=== PATIENT | male | born 1990 | race Native Hawaiian/Other Pacific Islander ===

== ENCOUNTER 2016-08-09 13:03 | Outpatient (CLI) | payer MEDICAID | END 2016-08-09 13:04 | disposition home or self-care (01) | DX: G47.30 Sleep apnea, unspecified (principal); R06.83 Snoring; G47.8 Other sleep disorders ==

== ENCOUNTER 2016-11-09 13:13 | Outpatient (CLI) | payer MEDICAID | END 2016-11-09 13:14 | disposition home or self-care (01) | DX: G47.33 Obstructive sleep apnea (adult) (pediatric) (principal) ==

== ENCOUNTER 2016-12-17 12:52 | Outpatient (CLI) | payer MEDICAID ==
[2016-12-17 13:21] LABS: ALBUMIN/GLOBULIN RATIO 1.1 (1.0-2.2); BILIRUBIN,TOTAL 0.7 mg/dL (0.2-1.0); CALCIUM 9.5 mg/dL (8.5-10.3); CREATININE 0.8 mg/dL (0.6-1.2); POTASSIUM 4.3 mmol/L (3.5-5.0); TOTAL PROTEIN 7.8 g/dL (6.7-8.2)
== END 2016-12-17 12:53 | disposition home or self-care (01) ==
LOC: LAB 12:52
PROVIDERS: ATTEND Physician Assistant
DX: C71.9 Malignant neoplasm of brain, unspecified (principal)
CPT/HCPCS: 36415; 80053

== ENCOUNTER 2016-12-20 14:25 | Outpatient (CLI) | payer MEDICAID ==
[2016-12-20 19:22] LABS: BASOPHILS % (AUTO) 0.4 %; EOSINOPHILS # (AUTO) 0.2 10^3/uL (0.0-0.7); EOSINOPHILS % (AUTO) 2.6 %; HCT - HEMATOCRIT 39.9 % (42.0-52.0); HGB - HEMOGLOBIN 13.7 g/dL (14.0-18.0); LYMPHOCYTES # (AUTO) 2.1 10^3/uL (1.5-3.5); LYMPHOCYTES % (AUTO) 30.8 %; MEAN CORPUSCULAR HEMOGLOBIN 29.2 pg (27.0-31.0); MEAN CORPUSCULAR HGB CONC 34.4 g/dL (32.0-36.0); MEAN CORPUSCULAR VOLUME 85.1 fL (80.0-94.0); MEAN PLATELET VOLUME 10.4 fL (7.4-11.4); MONOCYTES # (AUTO) 0.4 10^3/uL (0.0-1.0); MONOCYTES % (AUTO) 5.9 %; NEUTROPHILS # (AUTO) 4.2 10^3/uL (1.5-6.6); NEUTROPHILS % (AUTO) 60.3 %; RED BLOOD COUNT 4.69 10^6/uL (4.70-6.10); RED CELL DISTRIBUTION WIDTH 13.5 % (12.0-15.0); UNCORRECTED WHITE BLOOD COUNT 6.9 x10^3/uL; WHITE BLOOD COUNT 6.9 x10^3/uL (4.8-10.8)
== END 2016-12-20 14:26 | disposition home or self-care (01) ==
LOC: LAB.N 14:25
PROVIDERS: ATTEND Physician Assistant
DX: C71.9 Malignant neoplasm of brain, unspecified (principal)
CPT/HCPCS: 36415; 85025

== ENCOUNTER 2017-01-17 11:15 | Outpatient (CLI) | payer MEDICAID ==
[2017-01-17 12:04] LABS: CALCIUM 8.9 mg/dL (8.5-10.3); CREATININE 0.8 mg/dL (0.6-1.2); POTASSIUM 3.6 mmol/L (3.5-5.0)
== END 2017-01-17 11:16 | disposition home or self-care (01) ==
LOC: LAB 11:15
PROVIDERS: ATTEND Internal Medicine Endocrinology, Diabetes & Metabolism
DX: E23.2 Diabetes insipidus (principal)
CPT/HCPCS: 36415; 80048

== ENCOUNTER 2017-02-07 10:26 | Outpatient (CLI) | payer MEDICAID ==
[2017-02-07 13:00] LABS: BILIRUBIN,TOTAL 0.9 mg/dL (0.2-1.0); CALCIUM 9.1 mg/dL (8.5-10.3); CREATININE 0.9 mg/dL (0.6-1.2); POTASSIUM 3.8 mmol/L (3.5-5.0); TOTAL PROTEIN 7.9 g/dL (6.7-8.2)
== END 2017-02-07 10:27 | disposition home or self-care (01) ==
LOC: LAB.N 10:26
PROVIDERS: ATTEND Internal Medicine Endocrinology, Diabetes & Metabolism
DX: E23.2 Diabetes insipidus (principal); E29.1 Testicular hypofunction
CPT/HCPCS: 36415; 80053; 84403

== ENCOUNTER 2017-04-12 09:00 | Outpatient (CLI) | payer MEDICAID ==
[2017-04-12 19:39] LABS: ALBUMIN/GLOBULIN RATIO 0.9 (1.0-2.2); BILIRUBIN,DIRECT 0.1 mg/dL (0.1-0.5); BILIRUBIN,TOTAL 0.7 mg/dL (0.2-1.0); CALCIUM 9.4 mg/dL (8.5-10.3); CREATININE 0.9 mg/dL (0.6-1.2); TOTAL PROTEIN 7.7 g/dL (6.7-8.2)
== END 2017-04-12 09:01 | disposition home or self-care (01) ==
LOC: LAB.N 09:00
PROVIDERS: ATTEND Physician Assistant
DX: C71.9 Malignant neoplasm of brain, unspecified (principal)
CPT/HCPCS: 36415; 80053; 80076; 82248

== ENCOUNTER 2017-06-29 09:34 | Outpatient (CLI) | payer MEDICAID | END 2017-06-29 09:35 | disposition home or self-care (01) | LOC: NS 09:34 | PROVIDERS: ATTEND Internal Medicine | DX: Z71.3 Dietary counseling and surveillance (principal); E66.01 Morbid (severe) obesity due to excess calories; Z68.44 Body mass index [BMI] 60.0-69.9, adult | CPT/HCPCS: 97802 ==

== ENCOUNTER 2017-07-04 16:14 | Outpatient (CLI) | payer MEDICAID ==
[2017-07-04 16:48] LABS: ALBUMIN/GLOBULIN RATIO 0.8 (1.0-2.2); BILIRUBIN,DIRECT 0.1 mg/dL (0.1-0.5); BILIRUBIN,TOTAL 0.6 mg/dL (0.2-1.0); CALCIUM 9.1 mg/dL (8.5-10.3); CREATININE 0.9 mg/dL (0.6-1.2); POTASSIUM 3.8 mmol/L (3.5-5.0); TOTAL PROTEIN 8.1 g/dL (6.7-8.2)
[2017-07-04 16:49] LABS: BASOPHILS % (AUTO) 0.3 %; EOSINOPHILS # (AUTO) 0.2 10^3/uL (0.0-0.7); EOSINOPHILS % (AUTO) 2.1 %; HCT - HEMATOCRIT 43.6 % (42.0-52.0); HGB - HEMOGLOBIN 14.6 g/dL (14.0-18.0); LYMPHOCYTES # (AUTO) 1.2 10^3/uL (1.5-3.5); LYMPHOCYTES % (AUTO) 14.1 %; MEAN CORPUSCULAR HEMOGLOBIN 28.9 pg (27.0-31.0); MEAN CORPUSCULAR HGB CONC 33.5 g/dL (32.0-36.0); MEAN CORPUSCULAR VOLUME 86.1 fL (80.0-94.0); MEAN PLATELET VOLUME 9.1 fL (7.4-11.4); MONOCYTES # (AUTO) 0.6 10^3/uL (0.0-1.0); MONOCYTES % (AUTO) 7.1 %; NEUTROPHILS # (AUTO) 6.6 10^3/uL (1.5-6.6); NEUTROPHILS % (AUTO) 76.4 %; RED BLOOD COUNT 5.06 10^6/uL (4.70-6.10); RED CELL DISTRIBUTION WIDTH 14.6 % (12.0-15.0); UNCORRECTED WHITE BLOOD COUNT 8.7 x10^3/uL; WHITE BLOOD COUNT 8.7 x10^3/uL (4.8-10.8)
== END 2017-07-04 16:15 | disposition home or self-care (01) ==
LOC: LAB 16:14
PROVIDERS: ATTEND Physician Assistant
DX: Z51.11 Encounter for antineoplastic chemotherapy (principal); C71.9 Malignant neoplasm of brain, unspecified
CPT/HCPCS: 36415; 80053; 82248; 85025

== ENCOUNTER 2017-07-27 12:48 | Outpatient (CLI) | payer MEDICAID | END 2017-07-27 12:49 | disposition home or self-care (01) | LOC: NS 12:48 | PROVIDERS: ATTEND Internal Medicine | DX: Z71.3 Dietary counseling and surveillance (principal); E66.01 Morbid (severe) obesity due to excess calories; Z68.44 Body mass index [BMI] 60.0-69.9, adult | CPT/HCPCS: 97803 ==

== ENCOUNTER 2018-02-20 11:09 | Outpatient (CLI) | payer MEDICAID ==
[2018-02-20 19:11] LABS: CALCIUM 8.8 mg/dL (8.5-10.3)
[2018-02-20 19:26] LABS: THYROID STIMULATING HORMONE < 0.08 uIU/mL (0.34-5.60)
[2018-02-20 19:28] LABS: FREE T4 (FREE THYROXINE) 1.09 ng/dL (0.58-1.64)
== END 2018-02-20 11:10 | disposition home or self-care (01) ==
LOC: LAB.N 11:09
PROVIDERS: ATTEND Internal Medicine
DX: E23.0 Hypopituitarism (principal); E23.2 Diabetes insipidus; E29.1 Testicular hypofunction; E27.40 Unspecified adrenocortical insufficiency; E03.9 Hypothyroidism, unspecified; E55.9 Vitamin D deficiency, unspecified
CPT/HCPCS: 36415; 80048; 81599; 82306; 83930; 83935; 84146; 84439; 84443

== ENCOUNTER 2018-02-24 14:36 | Outpatient (CLI) | payer MEDICAID | END 2018-02-24 14:37 | disposition home or self-care (01) | LOC: LAB.R 14:36 | PROVIDERS: ATTEND Internal Medicine | DX: E23.0 Hypopituitarism (principal); E23.2 Diabetes insipidus; E29.1 Testicular hypofunction; E27.40 Unspecified adrenocortical insufficiency; E03.9 Hypothyroidism, unspecified; E55.9 Vitamin D deficiency, unspecified | CPT/HCPCS: 81003 ==

== ENCOUNTER 2018-08-16 08:00 | Outpatient (CLI) | payer MEDICAID | END 2018-08-16 23:59 | disposition home or self-care (01) | LOC: LAB.N 08:00 | PROVIDERS: ATTEND Internal Medicine | DX: E29.1 Testicular hypofunction (principal) | CPT/HCPCS: 36415; 81599; 84402; 84403 ==

== ENCOUNTER 2018-08-31 08:00 | Outpatient (CLI) | payer MEDICAID | END 2018-08-31 23:59 | disposition home or self-care (01) | LOC: LAB.N 08:00 | PROVIDERS: ATTEND Internal Medicine | DX: E29.1 Testicular hypofunction (principal) | CPT/HCPCS: 81599; 84270; 84402; 84403 ==

== ENCOUNTER 2018-10-29 15:48 | Outpatient (CLI) | payer MEDICAID | END 2018-10-29 15:49 | disposition home or self-care (01) | LOC: SC 15:48 | PROVIDERS: ATTEND Nurse Practitioner Family | DX: G47.33 Obstructive sleep apnea (adult) (pediatric) (principal) | CPT/HCPCS: 99212; 99214 ==

== ENCOUNTER 2019-01-29 10:00 | Outpatient (CLI) | payer MEDICAID | END 2019-01-29 23:59 | disposition home or self-care (01) | LOC: LAB.R 10:00 | PROVIDERS: ATTEND Family Medicine | DX: R39.9 Unspecified symptoms and signs involving the genitourinary system (principal) | CPT/HCPCS: 87086 ==

== ENCOUNTER 2019-02-21 14:55 | Outpatient (CLI) | payer MEDICAID ==
--- NOTE | 2019-02-22 10:58 | XRAY Report ---
Reason: FOOT PAIN, RIGHT Procedure Date: 02/21/2019 Accession Number: [id number] / [id number] Procedure: XR - Foot 2 View RT CPT Code: FULL RESULT: EXAM: RIGHT FOOT RADIOGRAPHY EXAM DATE: 02/21/2019 03:08 PM. CLINICAL HISTORY: Right foot pain and swelling for 2 weeks. COMPARISON: None. TECHNIQUE: 2 views. FINDINGS: Bones: No acute fracture or bony lesion. No bony erosions. Small posterior and plantar calcaneal spurs. Joints: Mild degenerative changes of the right first MTP joint. No dislocation. Soft Tissues: Soft tissue edema. No radiopaque foreign bodies. IMPRESSION: 1. No osseous abnormalities. RADIA
== END 2019-02-21 14:56 | disposition home or self-care (01) ==
LOC: DI 14:55
PROVIDERS: ATTEND Family Medicine
DX: M79.671 Pain in right foot (principal)

== ENCOUNTER 2019-02-22 23:20 | Emergency (ER) | payer MEDICAID ==
--- NOTE | 2019-02-23 00:51 | ED Physician Documentation ---
History of Present Illness - Stated complaint Stated Complaint: RT FOOT SWELL/PX - Chief complaint Chief Complaint: Ext Problem - History obtained from History obtained from: Patient - History of Present Illness Timing: How many days ago (2) Pain level now: 6 Improved by: rest Worsened by: palpation, movement, weight-bearing - Additonal information Additional information: c/o 1-2 days right foot pain and swelling. denies injury Review of Systems Constitutional: reports: Reviewed and negative Skin: reports: Reviewed and negative Musculoskeletal: reports: Extremity pain, Extremity swelling, Pain with weight bearing PD PAST MEDICAL HISTORY - Past Medical History Past Medical History: Yes Endocrine/Autoimmune: HyPOthyroidism - Past Surgical History Past Surgical History: Yes Neuro: Other - Present Medications Home Medications: Ambulatory Orders Medication Instructions Recorded Confirmed Indomethacin 25 mg PO TID PRN #20 capsule 02/23/19 oxyCODONE [Roxicodone] 5 - 10 mg PO Q6H PRN #20 tablet 02/23/19 - Allergies Allergies/Adverse Reactions: Allergies Allergy/AdvReac Type Severity Reaction Status Date / Time No Known Drug Allergies Allergy Verified 02/22/19 23:47 - Social History Does the pt smoke?: No Smoking Status: Never smoker Does the pt drink ETOH?: Yes Does the pt have substance abuse?: No - Immunizations Immunizations are current?: Yes - POLST Patient has POLST: No PD ED PE NORMAL - Vitals Vital signs reviewed: Yes - General General: Alert and oriented X 3, No acute distress, Well developed/nourished - Derm Derm: Normal color, Warm and dry, No rash - Neuro Neuro: No motor deficit, No sensory deficit PD ED PE EXPANDED - Extremities Extremities: Tenderness (right foot, worst at first MCP joint), Pedal edema R Results - Vitals Vitals: Oxygen O2 Source Room air - Rads (name of study) venous doppler right LE Radiology: Prelim report reviewed, See rad report PD MEDICAL DECISION MAKING - ED course Complexity details: reviewed results, re-evaluated patient, considered differential, d/w patient Departure - Departure Disposition: 01 Home, Self Care Clinical Impression: Pain of lower extremity Condition: Good Instructions: ED Arthritis Gout, ED Leg Swelling Unilateral Follow-Up: APRIL BERMAN MD [Primary Care Provider] - Within 3 Days Prescriptions: Indomethacin 25 mg PO TID PRN #20 capsule PRN Reason: Pain oxyCODONE [Roxicodone] 5 - 10 mg PO Q6H PRN #20 tablet PRN Reason: Pain Discharge Date/Time: 02/23/19 04:25
[2019-02-23] MEDS ORDERED: oxyCODONE 5 MG TABLET PO STA (01:25)
--- NOTE | 2019-02-23 02:10 | Ultrasound Report ---
Reason: swelling, pain, no injury Procedure Date: 02/23/2019 Accession Number: [id number] / [id number] Procedure: US - Duplex Ext Veins Right CPT Code: FULL RESULT: EXAM: RIGHT LOWER EXTREMITY VENOUS ULTRASOUND EXAM DATE: 02/23/2019 01:34 AM. CLINICAL HISTORY: Swelling, pain, no injury. COMPARISON: None. TECHNIQUE: Real-time sonographic vascular imaging was performed by the roll hand through the right lower extremity utilizing both color-flow and Doppler spectral analysis. Multiple customer account representative static images were saved for review. FINDINGS: Limitations: Suboptimal visualization of distal femoral vein and calf veins due to body habitus. Common Femoral Vein (CFV): Normal. CFV-GSV Junction: Normal. Profunda Femoral Vein (PFV): Normal. Femoral Vein (FV) Prox: Normal. Femoral Vein (FV) Mid: Normal. Femoral Vein (FV) Dist: Not well seen although normal as visualized. Popliteal Vein: Not well seen although normal as visualized. Posterior Tibial Veins: Not well seen. Peroneal Veins: Not well seen. IMPRESSION: 1. Somewhat limited examination due to body habitus. 2. No evidence of DVT in the right lower extremity allowing for limitations of exam. RADIA
[2019-02-23] MEDS ORDERED: HYDROmorphone 1 MG/ML CARPUJECT IM STA (02:48)
[2019-02-23] MEDS ORDERED: COLCHICINE 0.6 MG TABLET PO STA ×2 (02:49→02:50)
[2019-02-23] MEDS ORDERED: INDOMETHACIN 25 MG CAPSULE PO STA (02:50)
[2019-02-23] MEDS ORDERED: ONDANSETRON ODT 4 MG TABLET TL STA (03:42)
[2019-02-23 04:49] VITALS: BP 139/74
== END 2019-02-23 04:25 | disposition home or self-care (01) ==
LOC: ED 23:20
DX: M79.671 Pain in right foot (principal); R60.0 Localized edema
CPT/HCPCS: 93971; 96372; 99283; 99284; A9270; J1170; Q0162

== ENCOUNTER 2019-12-05 15:02 | Outpatient (CLI) | payer MEDICAID ==
--- NOTE | 2019-12-05 11:31 | SLEEP CARE CONSULTATION ---
Information from patient questionnaire entered by Miriam Deluca. I have reviewed and concur with the information entered by Miriam Deluca. This document represents the service I personally performed and the decisions made by me, Farhana Dowd, RN, MSN, APPLIANCE SERVICER. History of Present Illness Service Date and Time: 12/05/2019 1502 Previous diagnosis: Extremely Severe, Obstructive Sleep Apnea-Hypopnea Syndrome AHI: 129.9 (in 2009) Reason for follow up: annual (last seen 2018) Equipment type: CPAP Equipment obtained from: [employer] (getting supplies as needed) Mask style: Full face Backup mask available: No (keep current mask as spare when replaced) Last cushion change: with last mask in July CPAP Compliance Data - Data Reviewed with Patient Average duration of nightly device use: 6.55 Compliance rate %: 100 (180 days) Current pressure setting (cmH2O): 16 Humidity settin Heated hose settin Average residual AHI: 1.0 Average large leak: 31 min Subjective Patient concerns: reports: mask leak noise (notices when awakens but does not disrupt sleep), dry mouth, nose, throat (dry mouth - mild - most days). denies: aerophagia, mask discomfort, air blowing in eyes, condensation in mask/hose, nasal congestion, epistaxis, other Observed to snore while using device: No Current pressure setting perceived as: comfortable On therapy, patient: reports: sleeping better, awakening more refreshed, being more awake and alert during the day, more rested overall. denies: drowsiness while driving (intermittent restfulness that he relates to his thyroid and testosterone conditions managed by PCP) Initial [place] Sleepiness Scale score: 9 (in 2010) Allergies and Home Medications Home medication list reviewed: No ( diet medication added) Physical Exam Height: 6 ft 1 in Weight: 520 lb (home weight) Body Mass Index: 68.5 BMI Classification: Morbidly Obese Impression and Plan 1. Obstructive Sleep Apnea-Hypopnea Syndrome, extremely severe, with excellent treatment compliance and excellent apnea control. On CPAP therapy, the patient has better sleep quality and is more rested overall with intermittent fatigue related to other medical conditions. He is encouraged to change mask cushion more often for better mask seal as discussed. Review of supply replacements and can get a list from [employer]. Oral dryness can be reduced by adjusting humidity setting higher or heated hose lower or by adjusting both settings. with rationale explaining why to change. He will start process by lowering the heated hose. Oral dryness can also be reduced by reducing mask leaks. Patient advised that chronic oral dryness can affect dental health and advised to follow up with dentist. In addition, there are oral dryness products that can be used to reduce dryness such as Biotene products, Dry mouth rinse and Xylomelts. Patient to discuss best option with dentist. Patient has lost and gained weight. Currently patients BMI is 68.6 morbid obesity class . He is working with his PCP on weight loss with medication and diet plan with a crm consultant. I reviewed how obesity increases the risk of apnea, CPAP pressure requirements and overall health risks especially cardiovascular and diabetes. Thus patient is advised to continue to lose weight. The patient's CPAP pressure was changed to 14-16 cmH2O to accommodate future weight loss. Symptoms to report for additional pressure adjustment discussed. Patient's apnea severity and rationale for treatment to reduce apnea, improve sleep quality and reduce hypertension, cardiovascular and cerebrovascular events was reviewed. * * Changeauto CPAP pressure to 14-16 cmH2O * Notify me if snoring with mask or feeling that the pressure is too much or too little * Adjust humidity / heated hose * Continue to lose weight * Call this office if any problems using CPAP * Return for follow up in 1 year , or sooner if concerns arise Visit Type: Telehealth Video (to reduce risk of Covid 19 exposure) Video Type: PerfectPost Patient Location: Home Location of Provider: Home Patient agrees and consents to this telehealth visit type: Yes Patient agrees to have their insurance billed: Yes Time Spent with Patient (minutes): 25 Provider Statement: I spent 100% of the Telehealth Video Call with the patient with greater than 50% spent counseling the patient and coordination of care.
== END 2019-12-05 15:03 | disposition home or self-care (01) ==
LOC: SC 15:02
PROVIDERS: ATTEND Nurse Practitioner Family
DX: G47.33 Obstructive sleep apnea (adult) (pediatric) (principal); E66.01 Morbid (severe) obesity due to excess calories; Z68.44 Body mass index [BMI] 60.0-69.9, adult

== ENCOUNTER 2020-04-08 13:40 | Outpatient (CLI) | payer MEDICAID ==
[2020-04-08 18:54] LABS: CALCIUM 9.4 mg/dL (8.5-10.3); CREATININE 0.9 mg/dL (0.6-1.2)
[2020-04-08 19:08] LABS: THYROID STIMULATING HORMONE < 0.08 uIU/mL (0.34-5.60)
[2020-04-08 19:10] LABS: FREE T3 3.34 pg/mL (2.5-3.9)
[2020-04-08 19:11] LABS: FREE T4 (FREE THYROXINE) 0.92 ng/dL (0.58-1.64)
[2020-04-10 17:51] LABS: ALBUMIN 3.5 g/dL (3.6-5.1)
== END 2020-04-08 23:59 | disposition home or self-care (01) ==
LOC: LAB.WCP 13:40
PROVIDERS: ATTEND Internal Medicine
DX: E03.9 Hypothyroidism, unspecified (principal); E29.1 Testicular hypofunction; E23.2 Diabetes insipidus; E27.40 Unspecified adrenocortical insufficiency; E55.9 Vitamin D deficiency, unspecified
CPT/HCPCS: 36415; 80048; 82040; 82306; 83930; 83935; 84146; 84153; 84270; 84403; 84439; 84443; 84481; 85014

== ENCOUNTER 2020-04-16 20:22 | Emergency (ER) | payer MEDICAID ==
--- NOTE | 2020-04-16 20:31 | ED Physician Documentation ---
History of Present Illness - Stated complaint Stated Complaint: LT FOOT PX/SWOLLEN - History obtained from History obtained from: Patient - Additonal information Additional information: the patient is a 29 y/o m who p/w a cc of left foot pain. patient states he went to his doctor today who then sent the patient to the emergency department for x rays. patient states his doctor has diagnosed him with gout and sent him to the ER to get x rays of his left foot and ankle. the patient reports he gets similar attacks about once a year and his pain is typically relieved with indomethacin. today he is also complaining of plantar foot pain that is the most painful when he gets out of bed and on the first weight bearing activity of each day. denies fevers, DVT, PE, unilateral swelling, cough, hemoptysis or any other complaints. denies tobacco use. denies surgery of left lower extremity. reports is able to ambulate but with pain. Review of Systems Constitutional: reports: Reviewed and negative Eyes: reports: Reviewed and negative Ears: reports: Reviewed and negative Nose: reports: Reviewed and negative Throat: reports: Reviewed and negative Cardiac: reports: Reviewed and negative Respiratory: reports: Reviewed and negative GI: reports: Reviewed and negative : reports: Reviewed and negative Skin: reports: Reviewed and negative Musculoskeletal: reports: Other (left foot pain) Neurologic: reports: Reviewed and negative Psychiatric: reports: Reviewed and negative Endocrine: reports: Reviewed and negative Immunocompromised: reports: Reviewed and negative PD PAST MEDICAL HISTORY - Past Medical History Endocrine/Autoimmune: HyPOthyroidism - Past Surgical History Past Surgical History: Yes Neuro: Other - Present Medications Home Medications: Ambulatory Orders Medication Instructions Recorded Confirmed Indomethacin 25 mg PO TID PRN #20 capsule 02/23/19 oxyCODONE [Roxicodone] 5 - 10 mg PO Q6H PRN #20 tablet 02/23/19 Desmopressin Acetate 04/16/20 Hydrocortisone 04/16/20 Indomethacin 50 mg PO TID #10 capsule 04/16/20 Levothyroxine Sodium [Levoxyl] 200 mcg PO 04/16/20 Levothyroxine [Synthroid] 25 mcg PO QDAC 04/16/20 04/16/20 Phentermine HCl 30 mg PO 04/16/20 04/16/20 Testosterone 04/16/20 - Allergies Allergies/Adverse Reactions: Allergies Allergy/AdvReac Type Severity Reaction Status Date / Time No Known Drug Allergies Allergy Verified 04/16/20 20:34 - Social History Does the pt smoke?: No Smoking Status: Never smoker Does the pt drink ETOH?: Yes Does the pt have substance abuse?: No - Immunizations Immunizations are current?: Yes - POLST Patient has POLST: No PD ED PE NORMAL - Vitals Vital signs reviewed: Yes - General General: Alert and oriented X 3, No acute distress, Well developed/nourished, Other (obese male in NAD.) - HEENT HEENT: Atraumatic, PERRL - Neck Neck: Supple, no meningeal sign - Cardiac Cardiac: RRR, No murmur, Strong equal pulses - Respiratory Respiratory: No respiratory distress, Clear bilaterally - Abdomen Abdomen: Normal bowel sounds, Soft, Non tender, Non distended, Other (obese, no midline abd pulsatile mass. femoral pulses 2+ and symettric.) - Back Back: No CVA TTP, No spinal TTP - Derm Derm: Normal color, Warm and dry, No rash - Extremities Extremities: No deformity, Other (symettric 1+ edema to b/l LE, 1+ palpable DP/PT pulses also confirmed with doppler, negative homans sign b/l, no calf pain, no calf swelling, pain over left plantar region diffusely, TTP to left great toe. compartments soft, NV intact.) - Neuro Neuro: Alert and oriented X 3, medicine assistant 2-12 intact, No motor deficit, No sensory deficit, Normal speech - Psych Psych: Normal mood, Normal affect Results - Vitals Vitals: Vital Signs - 24 hr 04/16/20 20:24 Temperature 37.1 C Heart Rate 72 Respiratory 18 Rate Blood Pressure 130/61 O2 Saturation 99 Oxygen O2 Source Room air PD MEDICAL DECISION MAKING - ED course Complexity details: reviewed old records, reviewed results, re-evaluated patient, d/w patient, d/w family ED course: plantar fascitis and gout. no red flags concerning for ischemia or DVT. radiographs of foot and ankle are negative. pain improved with oral indomethacin and a dose of roxicodone. will provide prescription for indomethacin and follow up tomorrow with pcp. Departure - Departure Disposition: 01 Home, Self Care Clinical Impression: Plantar fasciitis of left foot Gout Qualifiers: Gout site: foot Gout etiology: unspecified cause Chronicity: acute Laterality: left Qualified Code(s): M10.9 - Gout, unspecified Condition: Stable Instructions: ED Plantar Fasciitis, Gout Attack Tx Follow-Up: APRIL BERMAN MD [Primary Care Provider] - Tomorrow Prescriptions: Indomethacin 50 mg PO TID #10 capsule Comments: take indomethacin as directed. call your primary care provider tomorrow for a follow up. use crutches as needed. keep foot elevated.
[2020-04-16] MEDS ORDERED: INDOMETHACIN 25 MG CAPSULE PO STA (20:44)
[2020-04-16] MEDS ORDERED: oxyCODONE 5 MG TABLET PO STA ×2 (20:47→21:26)
--- NOTE | 2020-04-16 21:09 | XRAY Report ---
PROCEDURE: Ankle 3 View LT INDICATIONS: pain TECHNIQUE: 3 views of the ankle were acquired. COMPARISON: Left foot from the same date FINDINGS: Bones: No fractures or dislocations. Ankle mortise is normally aligned. No suspicious bony lesions . Soft tissues: No tibiotalar joint effusion. Achilles tendon appears normal. Diffuse soft tissue ed ryanne. IMPRESSION: No evidence acute bony abnormality of the left ankle. Diffuse soft tissue edema. Reviewed by: Bernardino Galindo MD on 04/16/2020 9:07 PM PDT Approved by: Bernardino Galindo MD on 04/16/2020 9:07 PM PDT Station ID: [id number]
--- NOTE | 2020-04-16 21:10 | XRAY Report ---
PROCEDURE: Foot 3 View LT INDICATIONS: pain TECHNIQUE: 3 views of the foot were acquired. COMPARISON: Left ankle from the same date FINDINGS: Bones: No fractures or dislocations. No suspicious bony lesions. Midfoot degenerative change. Soft tissues: No tibiotalar joint effusion. Achilles tendon appears normal. Soft tissue edema. IMPRESSION: No evidence acute bony abnormality of the left foot. Midfoot degenerative change. Diffuse edema. Reviewed by: Bernardino Galindo MD on 04/16/2020 9:08 PM PDT Approved by: Bernardino Galindo MD on 04/16/2020 9:08 PM PDT Station ID: [id number]
[2020-04-16 21:26] VITALS: BP 119/62
== END 2020-04-16 21:36 | disposition home or self-care (01) ==
LOC: ED 20:22
DX: M72.2 Plantar fascial fibromatosis (principal); M10.072 Idiopathic gout, left ankle and foot
CPT/HCPCS: 73610; 73630; 99283; A9270

== ENCOUNTER 2020-06-12 11:01 | Outpatient (CLI) | payer MEDICAID ==
--- NOTE | 2020-06-12 12:27 | XRAY Report ---
PROCEDURE: Lumbar Spine w/Flex/Ext INDICATIONS: BACK PAIN, LUMBAR TECHNIQUE: 4 views of the lumbar spine acquired. COMPARISON: None. FINDINGS: Bones: 5 [id number] vertebrae are present. There is normal bony alignment. No vertebral body compression fractures. No suspicious bony lesions. Soft tissues: Overlying bowel gas pattern is normal. No suspicious soft tissue calcifications. Flexion/extension: There is normal range of motion, with preserved normal alignment. IMPRESSION: Normal lumbar spine. Reviewed by: Asif Granados on 06/12/2020 12:25 PM PST Approved by: Asif Granados on 06/12/2020 12:25 PM PST Station ID: [id number]
== END 2020-06-12 11:02 | disposition home or self-care (01) ==
LOC: DI 11:01
PROVIDERS: ATTEND Internal Medicine
DX: M54.5 Low back pain (principal)
CPT/HCPCS: 72114

== ENCOUNTER 2020-08-07 12:07 | Outpatient (CLI) | payer MEDICAID | END 2020-08-07 12:08 | disposition home or self-care (01) | LOC: LAB.N 12:07 | PROVIDERS: ATTEND Internal Medicine | DX: E23.2 Diabetes insipidus (principal); E29.1 Testicular hypofunction; E27.40 Unspecified adrenocortical insufficiency; E03.9 Hypothyroidism, unspecified; E55.9 Vitamin D deficiency, unspecified | CPT/HCPCS: 36415; 82306 ==

== ENCOUNTER 2020-12-12 10:55 | Outpatient (CLI) | payer MEDICAID ==
[2020-12-12 11:40] LABS: CALCIUM 8.9 mg/dL (8.5-10.3); CREATININE 0.7 mg/dL (0.6-1.2); POTASSIUM 3.5 mmol/L (3.5-5.0)
[2020-12-12 12:01] LABS: THYROID STIMULATING HORMONE < 0.08 uIU/mL (0.34-5.60)
[2020-12-12 12:03] LABS: FREE T3 3.91 pg/mL (2.5-3.9)
[2020-12-12 12:07] LABS: PROLACTIN 23.78 ng/mL
[2020-12-16 01:46] LABS: ALBUMIN 3.5 g/dL (3.6-5.1); SEX HORMONE BINDING GLOBULIN 47 nmol/L (10-50); TESTOSTERONE TTL MALE ADULT IA 187 ng/dL (250-827)
== END 2020-12-12 10:56 | disposition home or self-care (01) ==
LOC: LAB 10:55
PROVIDERS: ATTEND Internal Medicine
DX: E23.2 Diabetes insipidus (principal); E29.1 Testicular hypofunction; E27.40 Unspecified adrenocortical insufficiency; E03.9 Hypothyroidism, unspecified; E55.9 Vitamin D deficiency, unspecified
CPT/HCPCS: 36415; 80048; 82040; 82306; 83930; 83935; 84146; 84270; 84403; 84439; 84443; 84481; 85014

== ENCOUNTER 2020-12-14 12:57 | Outpatient (CLI) | payer MEDICAID ==
--- NOTE | 2020-12-14 13:45 | SLEEP CARE CONSULTATION ---
Information from patient questionnaire entered by Miriam Deluca. I have reviewed and concur with the information entered by Miriam Deluca. This document represents the service I personally performed and the decisions made by me, Francisca Moran MD, [facility]. History of Present Illness Service Date and Time: 12/14/2020 1257 Previous diagnosis: Extremely Severe, Obstructive Sleep Apnea-Hypopnea Syndrome AHI: 129.9 (in 2009) Reason for follow up: annual (last seen 11/2019) Equipment type: CPAP Equipment obtained from: [employer] Mask style: Full face Prior sleep studies: Yes Year and Where: 2009 [facility] Type of Sleep Study: Polysomnography HPI additional information: HPI: Mr. Castro was diagnosed to have extremely severe (AHI 129.9) obstructive sleep apnea-hypopnea syndrome in 2009 and returned today for his annual follow up of CPAP therapy. I reviewed his last visit notes. He is working with a improvement manager to lose weight to 450 and then consider bariatrics. The patient acquired his CPAP equipment from [email or web address] but is getting supplies from [employer]. He uses a full face mask with a chinstrap. His compliance report was downloaded and reviewed with patient. He uses the device nightly for about 6 hours a night on the average. He has 100% compliance rate for the past 180 days. He thinks that the current pressure of 16 cmH2O seems just right. Average residual AHI is 1.5. Average large leak is 1 hour and 40 minutes. However, there was none the last month after he got a new mask. On CPAP therapy he notices that he sleeps better, awakens more refreshed and is more awake/alert during the day. His [place] Sleepiness Score is: 8 (was 12 and at his initial evaluation it was 9). He does not drive. He feels his fatigue is due to medication side effects. CPAP Compliance Data - Data Reviewed with Patient Average duration of nightly device use: 5 hr 55 min Compliance rate %: 98.9 (180 days) Current pressure setting (cmH2O): 14-16 Humidity settin Heated hose settin Average residual AHI: 1.5 Average large leak: 1 hr 4 min Subjective Current pressure setting perceived as: comfortable Initial [place] Sleepiness Scale score: 9 (in 2009) Current [place] Sleepiness Scale score: 8 Allergies and Home Medications Drug allergies reviewed: Yes Home medication list reviewed: Yes Review of Systems Review of systems same as previous: Yes Physical Exam Height: 6 ft 1 in Weight: 520 lb Body Mass Index: 68.5 BMI Classification: Morbidly Obese Impression and Plan IMPRESSION: 1. Obstructive Sleep Apnea-Hypopnea Syndrome, extremely severe, with good treatment compliance and apnea control. On CPAP therapy he is more rested overall. The current pressure appears effective and comfortable. The air leak has resolved with new supplies. Unfortunately, he has gained more weight. PLAN: 1. Continue with autoCPAP set at 14 - 16 cmH2O. * Try a nasal interface with the chinstrap. * Try to lose weight * Return for follow-up next August when he is eligible for a new machine. Follow up recommended for: Weight management Visit Type: In Office Time Spent with Patient (minutes): 15 Provider Statement: I spent 100% of the Face to Face Visit with the patient with greater than 50% spent counseling the patient and coordination of care.
== END 2020-12-14 12:58 | disposition home or self-care (01) ==
LOC: SC 12:57
PROVIDERS: ATTEND Internal Medicine Pulmonary Disease
DX: G47.33 Obstructive sleep apnea (adult) (pediatric) (principal); E66.01 Morbid (severe) obesity due to excess calories; Z68.44 Body mass index [BMI] 60.0-69.9, adult
CPT/HCPCS: 99212

== ENCOUNTER 2021-03-20 13:34 | Outpatient (CLI) | payer MEDICAID | END 2021-03-20 13:35 | disposition home or self-care (01) | LOC: LAB.N 13:34 | PROVIDERS: ATTEND Internal Medicine | DX: E29.1 Testicular hypofunction (principal); R79.89 Other specified abnormal findings of blood chemistry | CPT/HCPCS: 82040; 82306; 84270; 84403 ==

== ENCOUNTER 2021-05-12 08:00 | Outpatient (CLI) | payer MEDICAID ==
[2021-05-12 18:13] LABS: BASOPHILS % (AUTO) 0.2 %; EOSINOPHILS # (AUTO) 0.1 10^3/uL (0.0-0.7); EOSINOPHILS % (AUTO) 0.4 %; HCT - HEMATOCRIT 44.1 % (42.0-52.0); HGB - HEMOGLOBIN 14.4 g/dL (14.0-18.0); LYMPHOCYTES # (AUTO) 0.9 10^3/uL (1.5-3.5); MEAN CORPUSCULAR HEMOGLOBIN 29.6 pg (27.0-31.0); MEAN CORPUSCULAR HGB CONC 32.7 g/dL (32.0-36.0); MEAN CORPUSCULAR VOLUME 90.6 fL (80.0-94.0); MEAN PLATELET VOLUME 12.4 fL (7.4-11.4); MONOCYTES # (AUTO) 1.1 10^3/uL (0.0-1.0); MONOCYTES % (AUTO) 8.4 %; NEUTROPHILS # (AUTO) 10.5 10^3/uL (1.5-6.6); NEUTROPHILS % (AUTO) 83.3 %; PLT - PLATELET COUNT 113 10^3/uL (130-450); RED BLOOD COUNT 4.87 10^6/uL (4.70-6.10); RED CELL DISTRIBUTION WIDTH 14.2 % (12.0-15.0); WHITE BLOOD COUNT 12.6 x10^3/uL (4.8-10.8)
[2021-05-12 18:53] LABS: ALBUMIN 3.7 g/dL (3.2-5.5); ALBUMIN/GLOBULIN RATIO 0.8 (1.0-2.2); BILIRUBIN,TOTAL 1.9 mg/dL (0.2-1.0); CALCIUM 9.1 mg/dL (8.5-10.3); CREATININE 0.9 mg/dL (0.6-1.2); POTASSIUM 3.7 mmol/L (3.5-5.0); TOTAL PROTEIN 8.4 g/dL (6.7-8.2)
== END 2021-05-12 23:59 | disposition home or self-care (01) ==
LOC: LAB.N 08:00
PROVIDERS: ATTEND Nurse Practitioner
DX: L03.116 Cellulitis of left lower limb (principal)
CPT/HCPCS: 36415; 80053; 85025

== ENCOUNTER 2021-05-12 08:00 | Outpatient (CLI) | payer MEDICAID | END 2021-05-12 23:59 | disposition home or self-care (01) | LOC: LAB.N 08:00 | PROVIDERS: ATTEND Nurse Practitioner | DX: R50.9 Fever, unspecified (principal); Z20.822 Contact with and (suspected) exposure to COVID-19 ==

== ENCOUNTER 2021-12-13 13:02 | Outpatient (CLI) | payer MEDICAID | END 2021-12-13 13:03 | disposition home or self-care (01) | LOC: NS 13:02 | PROVIDERS: ATTEND Internal Medicine | DX: Z71.3 Dietary counseling and surveillance (principal); E66.01 Morbid (severe) obesity due to excess calories; Z68.44 Body mass index [BMI] 60.0-69.9, adult | CPT/HCPCS: 97802 ==

== ENCOUNTER 2022-01-06 11:17 | Outpatient (CLI) | payer MEDICAID | END 2022-01-06 11:18 | disposition home or self-care (01) | LOC: NS 11:17 | PROVIDERS: ATTEND Internal Medicine | DX: E66.01 Morbid (severe) obesity due to excess calories (principal); Z71.3 Dietary counseling and surveillance; Z68.44 Body mass index [BMI] 60.0-69.9, adult | CPT/HCPCS: 97803 ==

== ENCOUNTER 2022-02-19 09:37 | Outpatient (CLI) | payer MEDICAID ==
[2022-02-19 10:12] LABS: BILIRUBIN,URINE NEGATIVE (NEGATIVE); GLUCOSE, URINE (UA) NEGATIVE (NEGATIVE); KETONES,URINE (UA) NEGATIVE (NEGATIVE); LEUKOCYTE ESTERASE, URINE NEGATIVE (NEGATIVE); NITRITE,URINE NEGATIVE (NEGATIVE); OCCULT BLOOD,URINE TRACE-INTA (NEGATIVE); PH,URINE 5.5 PH (5.0-7.5); PROTEIN,URINE NEGATIVE (NEGATIVE); UROBILINOGEN,URINE 0.2 (NORMAL) E.U./dL (NORMAL)
[2022-02-19 10:13] LABS: CLARITY,URINE CLEAR (CLEAR)
[2022-02-19 10:43] LABS: CALCIUM 9.2 mg/dL (8.5-10.3); CREATININE 0.9 mg/dL (0.6-1.2); POTASSIUM 3.9 mmol/L (3.5-5.0)
[2022-02-19 11:05] LABS: THYROID STIMULATING HORMONE < 0.08 uIU/mL (0.34-5.60)
[2022-02-19 11:06] LABS: FREE T3 3.64 pg/mL (2.5-3.9)
[2022-02-19 11:07] LABS: FREE T4 (FREE THYROXINE) 1.12 ng/dL (0.58-1.64)
[2022-02-20 20:37] LABS: ESTIMATED AVERAGE GLUCOSE 108 mg/dL (70-100); HEMOGLOBIN A1c% 5.4 % (4.27-6.07)
[2022-02-22 15:08] LABS: FREE TESTOSTERONE(DIRECT) 3.7 pg/mL (8.7-25.1)
== END 2022-02-19 09:38 | disposition home or self-care (01) ==
LOC: LAB 09:37
PROVIDERS: ATTEND Internal Medicine
DX: E03.9 Hypothyroidism, unspecified (principal); E29.1 Testicular hypofunction; E23.2 Diabetes insipidus; E55.9 Vitamin D deficiency, unspecified; E66.01 Morbid (severe) obesity due to excess calories
CPT/HCPCS: 36415; 80048; 81003; 82306; 83036; 83930; 83935; 84153; 84402; 84403; 84439; 84443; 84481

== ENCOUNTER 2022-02-25 13:46 | Outpatient (CLI) | payer MEDICAID | END 2022-02-25 13:47 | disposition home or self-care (01) | LOC: MAC.WC 13:46 | PROVIDERS: ATTEND Internal Medicine | DX: Z53.9 Procedure and treatment not carried out, unspecified reason (principal) ==

== ENCOUNTER 2022-03-26 11:28 | Outpatient (CLI) | payer MEDICAID | END 2022-03-26 11:29 | disposition home or self-care (01) | LOC: LAB 11:28 | PROVIDERS: ATTEND Internal Medicine | DX: E29.1 Testicular hypofunction (principal) | CPT/HCPCS: 81599 ==

== ENCOUNTER 2022-04-02 12:11 | Outpatient (CLI) | payer MEDICAID ==
[2022-04-05 14:08] LABS: FREE TESTOSTERONE(DIRECT) <0.2 pg/mL (8.7-25.1); SEX HORM BINDING GLOB SERUM 73.6 nmol/L (16.5-55.9); TESTOSTERONE <3 ng/dL (264-916)
== END 2022-04-02 12:12 | disposition home or self-care (01) ==
LOC: LAB.N 12:11
PROVIDERS: ATTEND Internal Medicine
DX: E29.1 Testicular hypofunction (principal)
CPT/HCPCS: 36415; 80053; 84270; 84402; 84403; 85025; 85651

== ENCOUNTER 2022-07-06 15:30 | Outpatient (CLI) | payer MEDICAID ==
--- NOTE | 2022-07-06 16:05 | SLEEP CARE CONSULTATION ---
Information from patient questionnaire entered by Bill Frances. I have reviewed and concur with the information entered by Bill Frances. This document represents the service I personally performed and the decisions made by me, Ellen Kuo ARNP. History of Present Illness Service Date and Time: 07/06/2022 1530 Previous diagnosis: Extremely Severe, Obstructive Sleep Apnea-Hypopnea Syndrome AHI: 129.9 (in 2009) Reason for follow up: annual (LAST SEEN 11/2020) Equipment type: CPAP (DREAMSTATION) Equipment obtained from: [employer] (getting supplies as needed) Mask style: Full face Backup mask available: Yes (old mask) Prior sleep studies: Yes Year and Where: [facility] Type of Sleep Study: Polysomnography HPI additional information: CASSY ARTHUR was diagnosed to have extremely severe, AHI 129.9, obstructive sleep apnea-hypopnea syndrome and returned today for CPAP therapy annual follow- up. Sleep Study - Results Type of Sleep Study: Polysomnography Prior sleep studies: Yes Year and Where: 2009 [facility] Sleep CPAP Compliance Data - Data Reviewed with Patient Average duration of nightly device use: 5 hours 36 minutes Compliance rate %: 93.3 (30/30 days used; 180/180 days to 04/24/22) Current pressure setting (cmH2O): 14-16 Average residual AHI: 1 Central apnea: 0 Obstructive apnea: 0.6 Average large leak: 18 secs Subjective Missed days of use due to: reports: other (power outage) Patient concerns: reports: dry mouth, nose, throat (using a chinstrap to keep mouth closed). denies: aerophagia, mask discomfort, air blowing in eyes, mask leak noise, condensation in mask/hose, nasal congestion, epistaxis Observed to snore while using device: No Current pressure setting perceived as: comfortable On therapy, patient: reports: sleeping better, awakening more refreshed, being more awake and alert during the day, more rested overall. denies: drowsiness while driving (he does not drive; some drowsiness as passenger on long trips) Initial [place] Sleepiness Scale score: 9 (in 2009) Current [place] Sleepiness Scale score: 10 (07/06/2022) Allergies and Home Medications Drug allergies reviewed: Yes (NKDA) Home medication list reviewed: Yes (no changes) Review of Systems Review of systems same as previous: Yes (no changes) Physical Exam Vital signs obtained and entered by: BILL Chakraborty MA Blood Pressure: 140/78 (LEFT ) Cuff size: wrist Heart Rate: 80 O2 Saturation: 97 Height: 6 ft 1 in Weight: 516 lb 3.2 oz Weight change since last visit: 4 lbs loss Body Mass Index: 68.1 BMI Classification: Morbidly Obese Impression and Plan 1. Obstructive Sleep Apnea-Hypopnea Syndrome, extremely severe, with good treatment compliance and good apnea control. On CPAP therapy, the patient has better sleep quality and is more rested overall. Patient has significant improvement of their sleep apnea and are satisfied with current CPAP therapy. Patient denies problems with oral dryness, nasal congestion, epistaxis, skin irritation or aerophagia. Patient has a Dreamstation that was last updated in 08/2016. The patients CPAP is over 5 years old and of reasonable use. Thus, the CPAP will be updated. A DWO prescription will be made. Compliance guidelines for new device and follow up discussed. Patient's apnea severity and rationale for treatment to reduce apnea, improve sleep quality and reduce cardiovascular and cerebrovascular events was reviewed. I also reviewed the benefit of consistent device use of CPAP for gastric reflux, and depression. 2. Obesity, unspecified. Currently patients BMI is 68.1. He has been trying to lose weight but is on hormone replacement therapy. He is working with welt beater in [place]. He is limiting calories at his meals. Obesity increases the risk of apnea, CPAP pressure requirements and overall health risks especially cardiovascular and diabetes. Thus patient is advised to continue to try to lose weight. Weight loss can be done with reducing portion size, reducing refined foods and balancing content with vegetables, fruit and whole grain foods. In addition, patient encouraged to get regular exercise. The patient's CPAP pressure range should accommodate some weight loss. Symptoms to report for additional pressure adjustment discussed. * Continue auto CPAP pressure at 14-16 cmH2O * Update device * Update supplies * Notify me if snoring with mask or feeling that the pressure is too much or too little * Attempt to lose weight * Call this office if any problems using CPAP * Return for follow up in 1 year, or sooner if concerns arise Counseling Topics: Spare mask, Weight loss health impact Visit Type: In Office Time Spent with Patient (minutes): 21 Provider Statement: I spent 100% of the Face to Face Visit with the patient with greater than 50% spent counseling the patient and coordination of care.
[2022-07-06 16:10] VITALS: BP 140/78
== END 2022-07-06 15:31 | disposition home or self-care (01) ==
LOC: SC 15:30
PROVIDERS: ATTEND Nurse Practitioner Family
DX: G47.33 Obstructive sleep apnea (adult) (pediatric) (principal); E66.01 Morbid (severe) obesity due to excess calories; Z68.44 Body mass index [BMI] 60.0-69.9, adult
CPT/HCPCS: 99212; 99213

== ENCOUNTER 2022-09-07 09:03 | Outpatient (CLI) | payer MEDICAID ==
--- NOTE | 2022-09-07 09:21 | SLEEP CARE CONSULTATION ---
Information from patient questionnaire entered by Bill Frances. I have reviewed and concur with the information entered by Bill Frances. This document represents the service I personally performed and the decisions made by me, Ellen Kuo ARNP. History of Present Illness Service Date and Time: 09/07/2022 0903 Previous diagnosis: Extremely Severe, Obstructive Sleep Apnea-Hypopnea Syndrome AHI: 129.9 (in 2009) Reason for follow up: first compliance after device update, one month (F/U) Equipment type: CPAP (RESMED Airsense 11 s/u 06/2022) Equipment obtained from: [employer] (getting supplies as needed) Mask style: Full face Mask brand: [employer] Backup mask available: Yes (old mask) Last cushion change: 1 month Prior sleep studies: Yes Year and Where: 2009 [facility] Type of Sleep Study: Polysomnography HPI additional information: CASSY ARTHUR was diagnosed to have extremely severe, AHI 129.9, obstructive sleep apnea-hypopnea syndrome and returned today for CPAP therapy first compliance after updating device follow-up. Sleep Study - Results Type of Sleep Study: Polysomnography Prior sleep studies: Yes Year and Where: 2009 [facility] CPAP Compliance Data - Data Reviewed with Patient Average duration of nightly device use: 6 HRS 20 MIN Compliance rate %: 97 (08/06/22-09/04/22; 30/30 days used) Current pressure setting (cmH2O): 14-16 Average residual AHI: 1.2 Central apnea: 0.0 Obstructive apnea: 0.4 Average large leak: 0.0 LPM Subjective Patient concerns: denies: aerophagia, mask discomfort, air blowing in eyes, mask leak noise, condensation in mask/hose, nasal congestion, dry mouth, nose, throat, epistaxis Observed to snore while using device: No Current pressure setting perceived as: comfortable On therapy, patient: reports: sleeping better, awakening more refreshed, being more awake and alert during the day, more rested overall. denies: drowsiness while driving (does not drive) Initial [place] Sleepiness Scale score: 9 (in 2009) Current [place] Sleepiness Scale score: 14 (09/07/22) Physical Exam Vital signs obtained and entered by: BILL Chakraborty MA Blood Pressure: 134/78 (LEFT WRIST) Cuff size: regular Heart Rate: 105 O2 Saturation: 96 Height: 6 ft 1 in Weight: 555 lb 12.8 oz Weight change since last visit: 39 lb gain Body Mass Index: 73.3 BMI Classification: Morbidly Obese Impression and Plan 1. Obstructive Sleep Apnea-Hypopnea Syndrome, extremely severe, with good treatment compliance and good apnea control. On CPAP therapy, the patient has better sleep quality and is more rested overall. His [place] is 14/24 today and he states he has other medical issues contributing to his fatigue. Patient has significant improvement of their sleep apnea and are satisfied with current CPAP therapy. Patient denies problems with oral dryness, nasal congestion, epistaxis, skin irritation or aerophagia. Patient's apnea severity and rationale for treatment to reduce apnea, improve sleep quality and reduce card iovascular and cerebrovascular events was reviewed. I also reviewed the benefit of consistent device use of CPAP for gastric reflux and depression. 2. Obesity, unspecified. Currently patients BMI is 73.3. Patient has just started a new medication to help him with his daytime fatigue and to lose weight. Obesity increases the risk of apnea, CPAP pressure requirements and overall health risks especially cardiovascular and diabetes. Thus patient is advised to lose weight. * Continue auto CPAP pressure at 14-16 cmH2O * Notify me if snoring with mask or feeling that the pressure is too much or too little * Attempt to lose weight * Call this office if any problems using CPAP * Return for follow up in 1 year, or sooner if concerns arise Counseling Topics: Spare mask, Weight loss health impact Visit Type: In Office Time Spent with Patient (minutes): 21 Provider Statement: I spent 100% of the Face to Face Visit with the patient with greater than 50% spent counseling the patient and coordination of care.
[2022-09-07 09:22] VITALS: BP 134/78
== END 2022-09-07 09:04 | disposition home or self-care (01) ==
LOC: SC 09:03
PROVIDERS: ATTEND Nurse Practitioner Family
DX: G47.33 Obstructive sleep apnea (adult) (pediatric) (principal); E66.01 Morbid (severe) obesity due to excess calories; Z68.45 Body mass index [BMI] 70 or greater, adult
CPT/HCPCS: 99212; 99213

== ENCOUNTER 2022-10-22 11:27 | Outpatient (CLI) | payer MEDICAID ==
[2022-10-22 18:44] LABS: CALCIUM 8.7 mg/dL (8.5-10.3); CREATININE 0.8 mg/dL (0.6-1.2); POTASSIUM 3.7 mmol/L (3.5-5.0)
[2022-10-22 19:06] LABS: FREE T3 2.93 pg/mL (2.5-3.9)
[2022-10-22 19:07] LABS: FREE T4 (FREE THYROXINE) 0.97 ng/dL (0.58-1.64)
[2022-10-25 01:08] LABS: VITAMIN D 25-HYDROXY 39.9 ng/mL (30.0-100.0)
[2022-10-25 17:08] LABS: FREE TESTOSTERONE(DIRECT) 1.9 pg/mL (8.7-25.1)
== END 2022-10-22 11:28 | disposition home or self-care (01) ==
LOC: LAB.N 11:27
PROVIDERS: ATTEND Internal Medicine
DX: E29.1 Testicular hypofunction (principal); E23.2 Diabetes insipidus; E03.9 Hypothyroidism, unspecified; E55.9 Vitamin D deficiency, unspecified; E27.40 Unspecified adrenocortical insufficiency
CPT/HCPCS: 36415; 80048; 82306; 83930; 84153; 84402; 84403; 84439; 84481; 85014; 85025

== ENCOUNTER 2023-01-04 08:00 | Outpatient (CLI) | payer MEDICAID | END 2023-01-04 23:59 | disposition home or self-care (01) | LOC: LAB.R 08:00 | PROVIDERS: ATTEND Registered Nurse | DX: L02.91 Cutaneous abscess, unspecified (principal) | CPT/HCPCS: 87070; 87077; 87181; 87205 ==

== ENCOUNTER 2023-04-27 11:05 | Outpatient (CLI) | payer MEDICAID ==
[2023-04-27 17:38] LABS: BILIRUBIN,URINE NEGATIVE (NEGATIVE); GLUCOSE, URINE (UA) NEGATIVE (NEGATIVE); KETONES,URINE (UA) NEGATIVE (NEGATIVE); LEUKOCYTE ESTERASE, URINE NEGATIVE (NEGATIVE); NITRITE,URINE NEGATIVE (NEGATIVE); OCCULT BLOOD,URINE NEGATIVE (NEGATIVE); PH,URINE 5.5 PH (5.0-7.5); PROTEIN,URINE NEGATIVE (NEGATIVE); UROBILINOGEN,URINE 0.2 (NORMAL) E.U./dL (NORMAL)
[2023-04-27 17:47] LABS: CLARITY,URINE CLEAR (CLEAR)
[2023-04-27 18:05] LABS: CALCIUM 9.3 mg/dL (8.5-10.3); CREATININE 0.9 mg/dL (0.6-1.3); POTASSIUM 3.4 mmol/L (3.5-4.5)
[2023-04-28 07:10] LABS: VITAMIN D 25-HYDROXY 23.8 ng/mL (30.0-100.0)
[2023-04-28 14:08] LABS: OSMOLALITY 296 mOsmol/kg (275-295); OSMOLALITY URINE 720 mOsmol/kg (.)
[2023-04-28 16:08] LABS: FREE TESTOSTERONE(DIRECT) 3.7 pg/mL (8.7-25.1)
== END 2023-04-27 11:06 | disposition home or self-care (01) ==
LOC: LAB.N 11:05
PROVIDERS: ATTEND Internal Medicine
DX: E03.9 Hypothyroidism, unspecified (principal); E29.1 Testicular hypofunction; E23.2 Diabetes insipidus; E55.9 Vitamin D deficiency, unspecified; E27.40 Unspecified adrenocortical insufficiency
CPT/HCPCS: 36415; 80048; 81003; 82306; 83930; 83935; 84153; 84402; 84403; 84439; 84481; 85014

== ENCOUNTER 2023-09-07 13:08 | Outpatient (CLI) | payer MEDICAID ==
--- NOTE | 2023-09-07 13:29 | Sleep Patient Instructions ---
Sleep Center Visit Summary - Patient Visit Information Reason for Visit: Annual follow-up - Patient Instructions Additional Instructions: You will continue with CPAP therapy with pressure set at 14-16 cmH2O. A supply prescription will be updated with your DME. We encourage you to continue to try to lose weight. Please follow up with the sleep care office in 1 year. - Clinic Information Contact: [facility] [address] [place] [address] [email or web address] T: [phone]
--- NOTE | 2023-09-07 13:36 | SLEEP CARE CONSULTATION ---
Information from patient questionnaire entered by Caitlyn Frances. I have reviewed and concur with the information entered by Caitlyn Frances. This document represents the service I personally performed and the decisions made by me, Ellen Kuo ARNP. History of Present Illness Service Date and Time: 09/07/2023 1308 Previous diagnosis: Extremely Severe, Obstructive Sleep Apnea-Hypopnea Syndrome AHI: 129.9 (in 2009) Reason for follow up: annual (LAST SEEN 08/2022) Equipment type: CPAP (RESMED Airsense 11 s/u 06/2022) Equipment obtained from: [employer] (getting supplies as needed) Mask style: Full face Backup mask available: Yes Last cushion change: 1 month Prior sleep studies: Yes Year and Where: [facility] Type of Sleep Study: Polysomnography HPI additional information: CASSY ARTHUR was diagnosed to have extremely severe, AHI 129.9, obstructive sleep apnea-hypopnea syndrome and returned today for CPAP therapy annual follow- up. Sleep Study - Results Type of Sleep Study: Polysomnography Prior sleep studies: Yes Year and Where: 2009 [facility] CPAP Compliance Data - Data Reviewed with Patient Average duration of nightly device use: 6 HRS 22 MINS Compliance rate %: 85 (09/05/22-09/04/23; 321/365 days used) Current pressure setting (cmH2O): 14-16 Average residual AHI: 0.7 Central apnea: 0 Obstructive apnea: 0.5 Hypopnea: 0.2 Average large leak: 0 L/min Subjective Missed days of use due to: reports: other (insomnia, due to medications taken too late in day) Patient concerns: denies: aerophagia, mask discomfort, air blowing in eyes, mask leak noise, condensation in mask/hose, nasal congestion, dry mouth, nose, throat, epistaxis Observed to snore while using device: No Current pressure setting perceived as: comfortable On therapy, patient: reports: sleeping better, awakening more refreshed, being more awake and alert during the day, more rested overall. denies: drowsiness while driving (he does not drive) Initial [place] Sleepiness Scale score: 9 (in 2009) Current [place] Sleepiness Scale score: 13 (09/07/23) Allergies and Home Medications Known drug allergies: No Drug allergies reviewed: Yes Home medication list reviewed: Yes (no changes) Allergy and home medication list: Allergies No Known Drug Allergies Allergy (Verified 09/05/23 16:23) Review of Systems Review of systems same as previous: Yes (no changes) Physical Exam Vital signs obtained and entered by: CAITLYN Chakraborty MA Blood Pressure: 140/79 (LEFT ARM) Cuff size: regular Heart Rate: 78 O2 Saturation: 97 Height: 6 ft 1 in Weight: 525 lb 9.6 oz Body Mass Index: 69.3 BMI Classification: Morbidly Obese Impression and Plan 1. Obstructive Sleep Apnea-Hypopnea Syndrome, extremely severe, with good treatment compliance and good apnea control. On CPAP therapy, the patient has better sleep quality and is more rested overall. He has significant improvement of his sleep apnea and is satisfied with current therapy. Patient has significant improvement of their sleep apnea and is satisfied with current CPAP therapy. Patient denies problems with oral dryness, nasal congestion, epistaxis, skin irritation or aerophagia. We will followup next year. Patient's apnea severity and rationale for treatment to reduce apnea, improve sleep quality and reduce cardiovascular and cerebrovascular events was reviewed. I also reviewed the benefit of consistent device use of CPAP for gastric reflux and depression. 2. Obesity, unspecified. Currently patients BMI is 69.3. He is going to water aerobics a few times a week. Obesity increases the risk of apnea, CPAP pressure requirements and overall health risks especially cardiovascular and diabetes. Thus patient is advised to continue to try to lose weight. * Continue auto CPAP pressure at 14-16 cmH2O * Update supply prescription * Notify me if snoring with mask or feeling that the pressure is too much or too little * Attempt to lose weight * Call this office if any problems using CPAP * Return for follow up in 12 months, or sooner if concerns arise Counseling Topics: Spare mask, Weight loss health impact Prescriptions: Device supplies Follow up with Sleep Care in: 1 year Visit Type: In Office Time Spent with Patient (minutes): 20 Provider Statement: I spent 100% of the Face to Face Visit with the patient with greater than 50% spent counseling the patient and coordination of care.
[2023-09-07 13:40] VITALS: BP 140/79; O2SAT 97
== END 2023-09-07 13:09 | disposition home or self-care (01) ==
LOC: SC 13:08
PROVIDERS: ATTEND Nurse Practitioner Family
DX: G47.33 Obstructive sleep apnea (adult) (pediatric) (principal); E66.01 Morbid (severe) obesity due to excess calories; Z68.44 Body mass index [BMI] 60.0-69.9, adult
CPT/HCPCS: 99212; 99213

== ENCOUNTER 2024-03-21 08:35 | Outpatient (CLI) | payer MEDICAID ==
[2024-03-21 12:12] LABS: ESTIMATED AVERAGE GLUCOSE 85 mg/dL (70-100); HEMOGLOBIN A1c% 4.6 % (4.27-6.07)
[2024-03-21 12:19] LABS: CHOL/HDL RATIO 3.2 (<5.0); CHOLESTEROL 129 mg/dL; HDL CHOLESTEROL 40 mg/dL; LDL CHOLESTEROL,CALCULATED 72 mg/dL; LDL/HDL RATIO 1.8 (<3.6); TRIGLYCERIDES 83 mg/dL; URIC ACID 8.4 mg/dL (4.4-7.6); VLDL CHOLESTEROL 17 mg/dL
== END 2024-03-21 08:36 | disposition home or self-care (01) ==
LOC: LAB.N 08:35
PROVIDERS: ATTEND Internal Medicine
DX: Z13.220 Encounter for screening for lipoid disorders (principal); Z51.81 Encounter for therapeutic drug level monitoring; M10.9 Gout, unspecified
CPT/HCPCS: 36415; 80061; 83036; 83721; 84550

== ENCOUNTER 2024-04-04 10:30 | Outpatient (CLI) | payer MEDICAID | END 2024-04-04 10:45 | disposition home or self-care (01) | LOC: LAB.N 10:30 | PROVIDERS: ATTEND Family Medicine | DX: L02.412 Cutaneous abscess of left axilla (principal) | CPT/HCPCS: 87070; 87205 ==